=== PATIENT | female | born 1960 | race Caucasian/White ===

== ENCOUNTER 2019-01-11 11:00 | Outpatient (CLI) | payer BC, MEDICARE ==
[~2019-01-11] VITALS: Ht 167.7 cm; Wt 86.3 kg
[~2019-01-11 11:00] MED LIST: ASPI-808 PO; CLAR-19 PO; DPAS20025 PO; GBPN600T PO; HYDR-3816 PO; IBUP-1780 PO; LEVO25TA5 PO; LISI10TA2 PO; MELO7.5T46 PO; SERT50TA9 PO
== END 2019-01-11 11:50 | disposition home or self-care (01) ==
LOC: EDSEX 11:00 → PREOP 11:00
PROVIDERS: ATTEND Surgery
DX: Z01.818 Encounter for other preprocedural examination (principal)

== ENCOUNTER 2019-01-13 08:51 | Day surgery (SDC) | payer BC, MEDICARE ==
--- NOTE | 2019-01-11 10:14 | HISTORY AND PHYSICAL ---
DATE OF SERVICE: DATE OF ADMISSION: 01/13/2019 DATE OF SURGERY: 01/13/2019 ATTENDING PHYSICIAN: Dr. Boogie Bingham and Dr. Gilman. HISTORY OF PRESENT ILLNESS: The patient is a 58-year-old female who is known to us. She has been seen for multitude of medical issues in the past. She was initially seen for abdominal pain and was found to have a biliary dyskinesia and underwent a laparoscopic cholecystectomy in 2007. She also has a history of peripheral vascular disease and chronic carotid artery stenosis. She reports that she did have a CVA years ago and multiple neurologic symptoms since that time including recurrent headaches as well as weakness and blackouts. She reports that she was evaluated by Neurology and underwent an EEG, which was normal. She was diagnosed with a brain stem ischemia and symptoms associated with that and had been started on treatment with Aggrenox as well as aspirin. She was then seen by us in 06/2014, where she was reporting issues with right lower quadrant abdominal pain and was initially referred over to [facility] where a right ovarian cyst was identified. She was then referred over to another [facility] for possible hysterectomy; however, it was decided against this. She did continue to complain of the abdominal pain; however, in the past, she had underwent a sigmoid colon resection due to diverticulosis. It was decided at that time to proceed with a colonoscopy where she was found to have chronic fissure, external and internal hemorrhoids that were not actively edematous or inflamed. There was a mild to moderate diverticulosis with some mucosal inflammatory changes which were consistent with a mild sigmoid diverticulitis. The remainder of the colon appeared to be adenoma of the colo-ileal anastomosis. On today's visit, she reports with complaints of pain to the right groin. She states that she was initially eating pretzels which she reports got caught in her throat causing a reflux of coughing which she reports were significant amount of time. She reports that during that timeframe, she did have increased intra-abdominal pressure. She reports that after that event, she did develop pain in the right inguinal region. Upon examination, she did have pain upon deep palpation in the right inguinal region; however, there is no palpable fascial defect or outpouching identified. Upon palpation of the left inguinal region, she also did have some discomfort. 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 She does have some mild discomfort in this region as well. There were no inguinal hernias that were detected on CT scan. PAST MEDICAL HISTORY: CVA, peripheral neuropathy, peripheral vascular disease, hypercholesterolemia, cerebral ataxia, diverticulosis with diverticulitis. PAST SURGICAL HISTORY: Tonsillectomy, tubal ligation, left knee arthroscopy, segmental colon resection in 2009 for what sounds to be diverticulosis, laparoscopic cholecystectomy in 03/2008, and complete hysterectomy and appendectomy. ALLERGIES: No known drug allergies. MEDICATIONS: Aspirin 325 mg daily, Aggrenox 200/25 mg b.i.d., lisinopril 10 mg daily, meloxicam 7.5 mg daily, Mucinex b.i.d., gabapentin 600 mg b.i.d., and tramadol p.r.n. SOCIAL HISTORY: Positive smoker, 80 pack years. Social alcohol. FAMILY HISTORY: Brother with lung cancer. Mother with hypertension, diabetes. Father with myocardial infarction. Vital signs - blood pressure is 110/50, current weight is 95.2, height 5 feet 6. REVIEW OF SYSTEMS: Well-nourished female, in no acute distress. She is not experiencing any shortness of breath or difficulty breathing. No chest pain, palpitations or diaphoresis. No nausea or vomiting. She does report some episodes of pain in the right and left inguinal region; however, no inguinal hernias identified. There is a hernia identified in the periumbilical region, which is tender to palpation. No diarrhea or constipation. No red blood per rectum. No dark tarry stools. No fever or chills. No recent inadvertent weight loss. No hematuria. No dysuria. All other review of systems is negative. PHYSICAL EXAMINATION: CHEST: Scattered rales and rhonchi bilaterally. HEART: Regular, no murmurs. EXTREMITIES: No lower extremity edema. Negative Homans sign. HEENT: No scleral icterus. NECK: No cervical lymphadenopathy. ABDOMEN: Soft, nondistended. There is some discomfort with palpation in the inguinal regions as well as a palpable incisional hernia in the periumbilical region. No palpable masses. No organomegaly. SKIN: Warm, dry and pink. NEUROLOGIC: Awake, alert and oriented x3. ASSESSMENT AND PLAN: A 58-year-old female with bilateral inguinal ligament strain as well as a symptomatic incisional hernia in the periumbilical region. At this time, we will proceed with conservative treatment with medical management with ibuprofen as well as pain medications as needed for the inguinal ligament strain. For the incisional hernia, the risks and benefits of the procedure as well as the procedure and home care instructions were explained to the patient. The patient verbalized understanding of instructions and agrees to this plan. At this time, we will proceed with a ventral abdominal incisional hernia repair with mesh. Job ID: [id number] DocumentID: [id number] Dictated Date: 01/10/2019 16:51:09 Hub Lead Date: 01/10/2019 18:37:22 Dictated By: STEPHANIE MESSINA APRN
[2019-01-13] VITALS (10 sets, daily range): BP systolic 113–198; BP diastolic 57–98
[~2019-01-13] VITALS: Ht 167.7 cm; Wt 84.0 kg
--- NOTE | 2019-01-13 09:07 | Progress Note-Pre Operative ---
Pre-Operative Progress Note H&P Reviewed The H&P was reviewed, patient examined and no changes noted. Date Seen by Provider: Jan 13, 2019 Time Seen by Provider: 09:00 Date H&P Reviewed: Jan 13, 2019 Time H&P Reviewed: 09:00 Pre-Operative Diagnosis: symptomatic incarcerated ventral incisional hernia NAIF DAMON MD Jan 13, 2019 09:07
[2019-01-13] MEDS ORDERED: ACETAMINOPHEN 325 MG TABLET PO PRN (09:15)
[2019-01-13] MEDS ORDERED: morphine INJ 10 MG/ML 1ML (SYR OR VIAL) IVP PRN ×2 (09:15)
[2019-01-13] MEDS ORDERED: ONDANSETRON 4 MG/2 ML (SDV) Z0FRAN IVP PRN ×2 (09:15→15:30)
[2019-01-13 09:41] LABS: MEAN PLATELET VOLUME 10.7 FL (7.4-10.4); RED CELL DISTRIBUTION WIDTH 13.8 % (10.0-14.5); WHITE BLOOD COUNT 5.8 10^3/uL (4.3-11.0)
[2019-01-13] MEDS ORDERED: CATHETER FLUSH 10 ML SYR IV PRN (09:45)
[2019-01-13] MEDS ORDERED: ceFAZolin 2 GM/50 ML NS 50 ML IV ONE (09:45)
[2019-01-13] MEDS: LACTATED RINGERS 1,000 ML IV PRN ×2 (09:53→14:08)
[2019-01-13 09:57] LABS: INR 0.9 (0.8-1.4); PROTHROMBIN TIME PATIENT 12.6 SEC (12.2-14.7)
[2019-01-13 10:01] LABS: BUN/CREATININE RATIO 19; CALCIUM 9.4 MG/DL (8.5-10.1); CARBON DIOXIDE 27 MMOL/L (21-32); CHLORIDE 107 MMOL/L (98-107); CREATININE SERUM 0.73 MG/DL (0.60-1.30); GFR ESTIMATED > 60; GLUCOSE 91 MG/DL (70-105); POTASSIUM 4.3 MMOL/L (3.6-5.0); SODIUM 142 MMOL/L (135-145)
[2019-01-13] MEDS ORDERED: fentaNYL INJECTION 100 MCG/2 ML AMP ONE ×2 (10:51→12:34)
[2019-01-13] MEDS ORDERED: fentaNYL INJECTION 100 MCG/2 ML AMP IVP ONE (11:00)
[2019-01-13] MEDS ORDERED: LIDOCAINE PF 2% 5 ML (XYLOCAINE) VIAL ONE (12:33)
[2019-01-13] MEDS ORDERED: SEVOFLURANE (ULTANE) 15 ML INHAL SOLN ONE ×2 (12:33→14:01)
[2019-01-13] MEDS ORDERED: proPOfol 200 MG/20 ML (DIPRIVAN) VIAL IV ONE (12:33)
[2019-01-13] MEDS ORDERED: ROCURONIUM 10 MG/ML 5 ML SYRINGE IV ONE (12:33)
[2019-01-13] MEDS ORDERED: MIDAZOLAM 2 MG/2 ML (VERSED) VIAL ONE (12:34)
[2019-01-13] MEDS ORDERED: ceFAZolin 2 GM/50 ML NS 50 ML ONE (12:44)
[2019-01-13] MEDS ORDERED: BUP/EPI 0.25% 1:200,000 (MARCAINE) 10 ML VIAL IJ ONE (13:29)
[2019-01-13] MEDS ORDERED: BUPIVACAINE 0.5% 30 ML (SENSORCAINE) VIAL ONE (14:01)
[2019-01-13] MEDS ORDERED: ONDANSETRON 4 MG/2 ML (SDV) Z0FRAN ONE (14:02)
[2019-01-13] MEDS ORDERED: DEXAMETHASONE 10 MG/ML (DECADRON) 1 ML VIAL ONE (14:02)
[2019-01-13] MEDS ORDERED: GLYCOPYRROLATE 0.2 MG/ML (ROBINUL) 2 ML VIAL ONE (14:03)
[2019-01-13] MEDS ORDERED: NEOSTIGMINE 3 MG/3 ML VIAL ONE (14:03)
--- NOTE | 2019-01-13 14:05 | Progress Note-Post Operative ---
Post-Operative Progess Note Surgeon (s)/Funeral Greeter (s) Surgeon NAIF DAMON MD Funeral Greeter: antonio almodovar INDUSTRIAL ILLUMINATING ENGINEER Pre-Operative Diagnosis symptomatic incarcerated ventral incisional hernia Post-Operative Diagnosis same (4cm) Procedure & Operative Findings Date of Procedure 01/13/19 Procedure Performed/Findings open ventral abdominal incisional hernia repair with mesh. Anesthesia Type get Estimated Blood Loss Estimated blood loss (mL): minimal Specimens/Packing Specimens Removed hernia sac NAIF DAMON MD Jan 13, 2019 14:05
--- NOTE | 2019-01-13 14:10 | Discharge Inst-Surgical ---
D/C Lap Instructions-NELSON New, Converted, or Re-Newed RX: RX on Chart Follow Up Appt in 2 weeks Activity as tolerated No driving for 24 hours No [address] while on pain medications Incentive Spirometry use every 2 hours while awake Regular Diet Symptoms to Report: Fever over 101 degree F, Nausea/Vomiting Infection Signs and Symptoms to report: Increased redness, Foul odor of wound, Increased drainage Bathing instructions: May shower Operative Area Clean/Dry; Keep incision clean/dry If any problems/questions: Contact your physician or go to Emergency Room NAIF DAMON MD Jan 13, 2019 14:10
[2019-01-13] MEDS ORDERED: RT-ALBUTEROL SULF 2.5 MG/3 ML PRE-MIX VIAL ONE (14:50)
[2019-01-13] MEDS ORDERED: morphine INJ 4 MG/ML 1 ML (VIAL/SYRINGE) ONE (15:05)
[2019-01-13] MEDS ORDERED: RT-ALBUTEROL SULF 2.5 MG/3 ML PRE-MIX VIAL INH ONE (15:30)
[2019-01-13] MEDS ORDERED: morphine INJ 10 MG/ML 1ML (SYR OR VIAL) IVP ONE (15:30)
[2019-01-13] MEDS ORDERED: HYDROmorphone 2 MG/ML VIAL (DILAUDID) IV ONE (15:30)
--- NOTE | 2019-01-13 16:00 | NUR ---
RECEIVED PT FROM [facility]. RECEIVED REPORT FROM AMELIE RAMOS. PATIENT IS AWAKE AND CONVERSANT. HER DRESSING IS CLEAN AND DRY. ICE PACK TO INCISION. 02 AT 2 L ON MASK. PATIENT ORIENTED TO ROOM.
[2019-01-13] MEDS: oxyCODONE/APAP 5/325MG (PERCOCET 5) TABLET PO PRN (18:21)
[2019-01-13] MEDS: RT-ALBUTEROL SULF 2.5 MG/3 ML PRE-MIX VIAL INH SCH (21:16)
--- NOTE | 2019-01-13 23:43 | OPERATIVE REPORT ---
DATE OF SERVICE: 01/13/2019 ATTENDING PRIMARY DOCTOR: Dr. Boogie Bingham. PREOPERATIVE DIAGNOSIS: Symptomatic ventral abdominal incisional hernia. POSTOPERATIVE DIAGNOSIS: Symptomatic ventral abdominal incisional hernia. PROCEDURE: Open ventral abdominal hernia repair with mesh. SURGEON: Naif Blair MD. CORN COOKER: Pedro Maldonado APRN. ANESTHESIA: General endotracheal. ESTIMATED BLOOD LOSS: Minimal. FINDINGS: Ventral abdominal incisional hernia from a previous midline laparotomy supraumbilical with one wall of the colon involved with no ischemic changes. DISPOSITION: The patient tolerated the procedure well. INDICATIONS: The patient is a 58-year-old female known to us. She has had a multitude of medical problems in the past including a biliary dyskinesia and underwent a cholecystectomy in 2007. She also does have a history of peripheral vascular disease including carotid artery stenosis. She did have a CVA years ago; however, she has had multitude of neurologic symptoms including recurrent headaches, weakness, blackouts and underwent workup with neurology with an EEG which was normal. She continued to have these symptoms; however, not severe. The working diagnosis was brain stem ischemia and was started on Aggrenox as well as aspirin. She reports that she has had some pain in the right lower abdominal quadrant and was initially referred to [facility] where an ovarian cyst was identified. She developed sigmoid diverticulitis and underwent what appears to be an open sigmoid colon resection. She was seen in the office 12/2018 where she stated that she was having some groin pain; however, no outpouchings were identified and she underwent a CT scan, which did not show any inguinal hernias. However, she did have a supraumbilical hernia with one wall of bowel within the hernia sac consistent with a Isaac's hernia. She did not have any peritoneal signs. DESCRIPTION OF PROCEDURE: The patient was brought to the operating room, laid supine on the table. After adequate IV pain and sedative medications and general endotracheal intubation, the abdomen was prepped and draped in standard surgical fashion. A 0.5% Marcaine with epinephrine was then used to anesthetize the overlying skin in a vertical fashion along the previous laparotomy incision site using 0.5% Marcaine with epinephrine. A vertical skin incision was then made using a 15 blade. Subcutaneous tissue was then dissected using electrocautery. The hernia sac was identified and then dissected out using electrocautery as well as blunt dissection until good fascia was identified. The hernia sac was then opened using Metzenbaum scissors. The hernia sac was examined. There was omentum as well as one wall of the colon identified within the sac; however, this was not strangulated and no ischemic changes identified. The remainder of the hernia sac was then excised under direct visualization using electrocautery. Adhesions towards the anterior abdominal wall, which encompassed omentum were then taken down using blunt dissection with visualization of good hemostasis. An 8 cm coated polypropylene mesh was then placed into the defect which was measured to be 4 cm in largest diameter. We then proceeded to place transfascial sutures approximating the fascia to the mesh using interrupted 0 Prolene sutures in a concentric mesh fashion. Good hemostasis was observed. Subcutaneous tissue was then reapproximated using 3-0 Vicryl interrupted suture and the skin was closed using 4-0 Monocryl running subcuticular suture. Wound was then cleaned and covered with Dermabond. The hernia was then covered with tonsil sponges followed by 4 x 4 gauze followed by large Tegaderm and abdominal binder. The patient tolerated the procedure well. We will start IV and oral pain medication. We will also admit her 23-hour observation due to she lives greater than one hour away in [place] and she also does have a history of brain stem ischemia and history of CVA as well as TIAs and we will restart her on Aggrenox. She also does have a history of COPD, so we will monitor her respiratory status as well. Job ID: [id number] DocumentID: [id number] Dictated Date: 01/13/2019 14:18:21 Shipyard Painter Apprentice Date: 01/13/2019 23:42:38 Dictated By: NAIF BLAIR MD [facility]ENTERAl[facility]
[2019-01-14 00:07] VITALS: BP 122/67
[2019-01-14] MEDS: RT-ALBUTEROL SULF 2.5 MG/3 ML PRE-MIX VIAL INH SCH ×2 (02:02→09:58)
[2019-01-14] MEDS: oxyCODONE/APAP 5/325MG (PERCOCET 5) TABLET PO PRN ×2 (02:16→08:25)
[2019-01-14 04:00] VITALS: BP 133/65
[2019-01-14 07:35] VITALS: BP 135/60
--- NOTE | 2019-01-14 10:08 | Anesthesia-General Post-Op ---
General Patient Condition Mental Status/LOC: Same as Preop Cardiovascular: Satisfactory Nausea/Vomiting: Absent Respiratory: Satisfactory Pain: Controlled Complications: Absent Post Op Complications Complications None Follow Up Care/Instructions Patient Instructions None needed. Anesthesia/Patient Condition Patient Condition Patient is doing well, no complaints, stable vital signs, no apparent adverse anesthesia problems. No complications reported per nursing. MARY MCCULLOUGH CRNA Jan 14, 2019 10:08
[2019-01-14 10:15] VITALS: BP 135/60
--- NOTE | 2019-01-14 11:44 | Diagnostic Imaging Report ---
PROCEDURE: US carotid duplex, bilateral. TECHNIQUE: Multiple real-time grayscale images were obtained over the carotid arteries in various projections, bilaterally. Additional spectral analysis and color Doppler duplex images were also obtained. INDICATION: Right internal carotid artery occlusion. FINDINGS: The previous carotid Doppler exam of 03/03/2014 noted that the internal carotid artery on the right was occluded. There is also a less than 50% stenosis of the proximal internal carotid artery on the left. On this exam, the internal carotid artery on the right remains occluded. There is atherosclerotic disease involving the internal carotid artery on the left but there is no hemodynamically significant stenosis identified. There do appear to be stenoses in the 70-80% in range of both external carotid artery origins. Both vertebral arteries were noted otherwise there was antegrade flow bilaterally. 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 There is atherosclerotic disease of the left internal carotid but there is still no hemodynamically significant stenosis identified. Parameters based on the consensus panel Thacker-Scale and Doppler ultrasound criteria published February 2003, Radiology, Volume 229. DOPPLER (peak systolic velocity M/S Right Left CCA .58 .85 ICA Proximal 0 1.46 ICA Mid 0 1.48 ICA Distal 0 1.2 RATIO n/a 1.75 ECA 3.2 2.85 VERT 1.03 .73 Dictated by: Dictated on workstation # [id number]
== END 2019-01-14 10:15 ==
LOC: EDSEX → SDC 08:51 → 4TH 15:52 → SDC 01-14 10:15
PROVIDERS: ATTEND Surgery
DX: K43.2 Incisional hernia without obstruction or gangrene (principal); J44.9 Chronic obstructive pulmonary disease, unspecified; I65.29 Occlusion and stenosis of unspecified carotid artery; I25.10 Atherosclerotic heart disease of native coronary artery without angina pectoris; I10 Essential (primary) hypertension; I73.9 Peripheral vascular disease, unspecified; F32.9 Major depressive disorder, single episode, unspecified; F17.210 Nicotine dependence, cigarettes, uncomplicated; Z86.73 Personal history of transient ischemic attack (TIA), and cerebral infarction without residual deficits; Z79.891 Long term (current) use of opiate analgesic; Z79.899 Other long term (current) drug therapy; Z90.89 Acquired absence of other organs; Z90.710 Acquired absence of both cervix and uterus; Z98.51 Tubal ligation status; Z80.1 Family history of malignant neoplasm of trachea, bronchus and lung; Z83.3 Family history of diabetes mellitus; Z82.49 Family history of ischemic heart disease and other diseases of the circulatory system
CPT/HCPCS: 36415; 80048; 85027; 85610; 87081; 88302; 93880; 94640; 94664; 94760